=== PATIENT | male | born 1970 | race Caucasian/White ===

== ENCOUNTER 2025-05-09 17:01 | Emergency (ER) | payer BC ==
[~2025-05-09] VITALS: Ht 188 cm; Wt 111.1 kg
[2025-05-09 17:42] LABS: BASOPHILS % 0.7 % (0.0-1.0); EOSINOPHILS % 4.2 % (0.0-6.0); LYMPHOCYTES % 24.0 % (18.0-39.1); MONOCYTES % 8.2 % (4.4-11.3); NEUTROPHILS % 61.7 % (38.7-80.0); RED CELL DISTRIBUTION WIDTH 12.6 % (11.7-14.4)
[2025-05-09 17:48] LABS: LEUKOCYTE ESTERASE ,URINE NEGATIVE (NEGATIVE); PROTEIN,URINE DIPSTICK NEGATIVE (NEGATIVE); URINE UROBILINOGEN 0.2 mg/dL (0.2 - 1)
[2025-05-09 17:54] LABS: EST GLOMERULAR FILTRATION RATE 77.0 ML/MIN (>=60)
[2025-05-09 17:55] LABS: EPITHELIAL CELLS,URINE FEW /LPF
[2025-05-09] MEDS: KETOROLAC TROMETHAMINE 30 MG/ML VIAL IV STA (20:38)
[2025-05-09] MEDS ORDERED: NAPROXEN375 MG PO (20:46)
[2025-05-09 20:48] VITALS: PULSE 87; RESP 16; TEMP 98.8; O2SAT 97
== END 2025-05-09 20:58 | disposition home or self-care (01) ==
LOC: ER 18:08
DX: M54.50 Low back pain, unspecified (principal); S76.811A Strain of other specified muscles, fascia and tendons at thigh level, right thigh, initial encounter; I10 Essential (primary) hypertension; E11.9 Type 2 diabetes mellitus without complications; J45.909 Unspecified asthma, uncomplicated
CPT/HCPCS: 36415; 74176; 80053; 81001; 85025; 99284; J1885